=== PATIENT | female | born 1995 | race Caucasian/White ===

== ENCOUNTER 2017-05-22 14:52 | Outpatient (CLI) | payer OTHER ==
[~2017-05-22 14:52] MED LIST: EPINEPHrine 1 MG/ML AMP ONE; Gadobenate Dimeglumine 529 MG/1 ML (20ML VIAL) ONE; Iopamidol 300 61% 30 ML VIAL ONE; Lidocaine 1% PF 5 ML VIAL ONE
[2017-05-22] MEDS ORDERED: Gadobenate Dimeglumine 529 MG/1 ML (20ML VIAL) ONE (16:13)
--- NOTE | 2017-05-23 08:59 | MRI ---
MRI RIGHT KNEE WITH INTRAARTICULAR CONTRAST: HISTORY: Chondromalacia patella. COMPARISON: None. FINDINGS: MEDIAL MENISCUS: Intact. LATERAL MENISCUS: Intact. ACL, PCL, MCL, and LCL are all intact. EXTENSOR MECHANISM: Quadriceps tendon, patella, and patellar tendon are intact. CARTILAGE: PATELLOFEMORAL COMPARTMENT: Intact. No focal defect. MEDIAL COMPARTMENT: Intact. LATERAL COMPARTMENT: Intact. No focal defect. MUSCLES: Normal muscle signal and bulk. IMPRESSION: Normal examination of the knee. No evidence of chondral injury. No evidence of internal derangemen t of the knee. POS: [facility]
--- NOTE | 2017-05-23 12:38 | RAD ---
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 Technique: Signed informed consent obtained. Patient was placed in right lateral decubitus position on fluorosc opy table. Medial approach selected. The skin was prepped and draped in the usual sterile fashion. A 25 gauge needle was used to apply buffered Lidocaine superficially and deeply. 22 gauge spinal need le was advanced into the inferior aspect of the patellofemoral compartment. A total of 15 ml of norm al saline solution containing Isovue, a tiny amount of MultiHance gadolinium-based contrast agent, a small amount of Lidocaine, and a tiny amount of Epinephrine, was injected into the joint space, und er brief, intermittent fluoroscopy. Needle was removed. Patient tolerated the procedure well. No com plications. FINDINGS: [employer] radiographs demonstrate no abnormality. Intraprocedure images demonstrate good contrast opacif ication of joint spaces, including suprapatellar region and medial and lateral compartments. IMPRESSION: 1. Successful right knee arthrogram. 2. See separate report of subsequent MR arthrogram. POS: OFF
== END 2017-05-22 14:53 | disposition home or self-care (01) ==
LOC: RAD 14:52
PROVIDERS: ATTEND Orthopaedic Surgery
DX: M22.41 Chondromalacia patellae, right knee (principal)
CPT/HCPCS: 27370; A9579; J0171; J2001; J7050

== ENCOUNTER 2017-10-31 02:14 | Emergency (ER) | payer OTHER | END 2017-10-31 03:12 | disposition home or self-care (01) | LOC: ERS 02:14 | DX: B37.3 Candidiasis of vulva and vagina (principal) | CPT/HCPCS: 87480; 87510; 87660; 99283 ==